=== PATIENT | male | born 1965 | race Two or more races ===

== ENCOUNTER 2023-11-26 19:22 | Emergency (ER) | payer OTHER, SELFPAY ==
[2023-11-26 19:24] VITALS: BP 135/79
--- NOTE | 2023-11-26 20:28 | ED.GENMED ---
History of Present Illness
General
Chief Complaint: Male Genito-Urinary Symptoms
Source: patient
Time Seen by Provider: 11/26/23 19:51
History of Present Illness
History of Present Illness:
58-year-old male presents to the emergency room for evaluation of difficulty urinating. Patient states that he typically would urinate several times during the day particularly shortly after consuming water. However over the past 4 months he has
been experiencing difficulty passing his urine. He states he goes several hours without urinating. He denies any back pain. He denies any burning or, dysuria or frequency. He denies any abdominal pain. He does not take any [id number]
medications or prescription medications. He has had no previous operations.
Past History
Past History
ED Past Medical History: None
ED Past Surgical History: None
Social History
Tobacco: Non-smoker
Alcohol: None
Personal:
Living: with family
Employment: Employed
Phy Exam
Physical Exam
Physical Exam:
General: Awake, Alert, Oriented X3. No acute distress.
Vitals: unremarkable
Head: Atraumatic
Eyes: Pupils equal, EOMI
Throat: Airway intact, no exudates
Neck: Trachea midline
Lungs: Clear and equal b/l
Heart: Regular rate, no murmurs
Abd: Soft, Nontender, No pulsatile mass
Neuro: Nonfocal
Skin: Warm, dry, no rash
Extremities: pulses equal b/l, no edema
Course
Orders/Labs/Results
Orders:
Orders
11/26/23 20:27
0.9% Sodium Chloride 1000 ml [Nss] 1,000 ml IV BOLUS
11/26/23 20:31
Basic Metabolic Panel Urgent
Complete Blood Count/With Diff Urgent
Magnesium Urgent
Phos [Phosphorus] Urgent
Urine Reflex Culture from UA [Urinalysis Reflex To Culture] Urgent
Date Specimen was Collected: 11/26/23
Time Specimen was Collected: 20:19
Abnormal Lab Results
11/26/23
20:31
Monocytes % 9.7 H %
(1.7-9.3)
11/26/23 20:31
11/26/23 20:31
Vital Signs
Initial and Last Documented VS:
Initial Vital Signs
Temp Pulse Resp BP Pulse Ox
98.5 F 71 16 135/79 100
11/26/23 19:24 11/26/23 19:24 11/26/23 19:24 11/26/23 19:24 11/26/23 19:24
Last Documented Vital Signs
Temp Pulse Resp BP Pulse Ox
98.5 F 63 18 121/80 99
11/26/23 19:24 11/26/23 20:42 11/26/23 20:42 11/26/23 20:42 11/26/23 20:42
MDM/Problems Addressed
Differential Diagnosis Includes:
Dehydration, prostatic hypertrophy, UTI, renal failure
MDM/Problems Addressed:
Patient has normal CBC, BMP and urine. His vital signs are normal. Bladder scan showed that he did complete bladder. But is related to fluid intake. He may have increased insensible loss due to very hot temperatures during the summer. Recommend
increase fluid intake follow-up with his primary and urology as scheduled.
*Pulse Oximetry
Patient hypoxic: no
*Critical Care Note
Total Time (30-74mins, 75-104mins- exclusive of procedures): Not Applicable
ED Attending Note
-
Portions of this chart may have been created with voice recognition software.� Occasional wrong word or��sound alike� substitutions may have occurred due to the inherent limitations of voice recognition software.
Discharge Plan
Departure
Patient Disposition: Home (Routine Discharge)
Date of Disposition: 11/26/23
Time of Disposition: 21:14
Patient with high blood pressure during this ER visit?: No
Condition: Good
Discharge Problem:
Decreased urine output
Instructions: Dehydration, Adult ED
Prescriptions:
No Action
No Current Medications
0
Referrals:
Anaid Christianson CRNP [Family Provider] -
Activity Restrictions/Additional Instructions:
I believe the amount you are urinating has decreased because you are not drinking enough fluids. Your blood work is all completely normal. The scan of your bladder shows you are completely emptying your bladder. The urine test is also normal. I
believe you will urinate more if you increase your water intake.
Interventions
Interventions:
*Risk Screen - Suicide Last Done: 11/26/23 19:24
*General Assessment Last Done: 11/26/23 19:24
*Neglect/Abuse Screening Last Done: 11/26/23 19:24
ED-Male Genitourinary Assessment Last Done: 11/26/23 20:20
Discharge Date and Time
Print Language: [id number]
[2023-11-26] MEDS: NSS 1000 IV (20:36)
[2023-11-26 20:42] VITALS: BP 121/80
[2023-11-26 20:43] LABS: % Basophils 0.4 % (0-2); % Eosinophils 4.3 % (0-6); % Immature Granulocytes 0.2 % (0-0.5); % Lymphocytes 37.1 % (20.5-51.1); % Monocytes 9.7 % (1.7-9.3); % Neutrophils 48.3 % (42.2-75.2); Absolute Eosinophils 0.2 10^3/uL (0-0.7); Absolute Monocytes 0.5 10^3/uL (0.1-0.6); Absolute Neutrophils 2.6 10^3/uL (1.4-6.5); Hematocrit 43.5 % (39.0-52.0); Hemoglobin 15.7 g/dL (13.0-18.0); Mean Corp Hgb Conc. 36.1 g/dL (33.0-37.0); Mean Corpuscular Hgb 30.4 pg (27.0-31.0); Mean Corpuscular Volume 84.1 fL (80.0-94.0); Mean Platelet Volume 10.4 fL (7.4-10.4); Nucleated Red Blood Cells % 0 % (-); Platelet Count 174 10^3/uL (130-400); Red Blood Cell Count 5.17 10^6/uL (4.70-6.10); White Blood Cell Count 5.4 10^3/uL (4.8-10.8)
[2023-11-26 20:44] VITALS: BMI 23.5
[2023-11-26 20:45] LABS: Urine Albumin Negative (Neg - Trace); Urine Bilirubin Negative (Negative); Urine Character Clear (Clear); Urine Color Yellow; Urine Glucose Negative (Negative); Urine Ketone Negative (Negative); Urine Leukocyte Negative (Negative); Urine Nitrite Negative (Negative); Urine Occult Blood Negative (Negative); Urine Urobilinogen Negative (Neg - 1+)
[2023-11-26 21:03] LABS: Blood Urea Nitrogen 18 mg/dl (9-20); Calcium 9.2 mg/dl (8.4-10.2); Carbon Dioxide 25 mmol/L (22-30); Chloride 106 mmol/L (98-107); Estimated Creatinine Clearance 63 ml/min; Glucose 99 mg/dl (70-99); Magnesium 2.1 mg/dl (1.6-2.3); Phosphorus 3.4 mg/dl (2.5-4.5); Potassium 3.8 mmol/L (3.5-5.1); Sodium 137 mmol/L (135-145); eGFR > 60.00
[2023-11-26 22:09] VITALS: BP 120/74
== END 2023-11-26 22:17 | disposition home or self-care (01) ==
LOC: EMR 19:22
PROVIDERS: EMERGENCY PHYSICIAN Emergency Medicine; FAMILY PHYSICIAN Family Medicine
DX: N39.8 Other specified disorders of urinary system (principal)
CPT/HCPCS: 99284; 96360; 51798; 80048; 81003; 83735; 84100; 85025